=== PATIENT | male | born 1990 | race Asian ===

== ENCOUNTER 2024-12-04 22:43 | Emergency (ER) | payer BC ==
[~2024-12-04] VITALS: Ht 175.3 cm; Wt 87.7 kg
[2024-12-04 22:45] VITALS: O2SAT 98
[2024-12-04 22:46] VITALS: RESP 18
[2024-12-04 23:11] LABS: BASOPHILS % 0.5 % (0.0-2.0); EOSINOPHILS % 2.1 % (0.0-5.0); HEMATOCRIT. 45.4 % (42.0-52.0); HEMOGLOBIN. 15.4 g/dL (14.0-18.0); LYMPHOCYTES % 32.3 % (20.0-50.0); MEAN PLATELET VOLUME 8.1 fl (7.4-10.4); MONOCYTES % 9.0 % (2.0-8.0); NEUTROPHILS % 56.1 % (40.0-76.0); PLATELET 243 x1000/uL (130-400); RED BLOOD CELL COUNT 5.52 mill/uL (4.7-6.1); RED CELL DISTRIBUTION WIDTH 13.3 % (11.6-14.6)
[2024-12-04 23:20] LABS: CREATININE 1.0 mg/dL (0.6-1.3)
[2024-12-04 23:21] LABS: TROPONIN I HIGH SENSITIVITY < 4 ng/L (3.0-53); UREA NITROGEN BLOOD 11 mg/dL (9-23)
[2024-12-05] MEDS: ONDANSETRON 4MG ODT PO ONE (00:45)
[2024-12-05] MEDS: MAGNESIUM/ALUMINUM HYDROXIDE/SIMETHICONE 30ML UDC PO ONE (00:45)
[2024-12-05 01:08] VITALS: BP 140/83; PULSE 92; TEMP 36.2; O2SAT 96
== END 2024-12-05 01:10 | disposition home or self-care (01) ==
LOC: ER 22:43
DX: R00.2 Palpitations (principal); R07.9 Chest pain, unspecified; R11.2 Nausea with vomiting, unspecified
CPT/HCPCS: 99285; 71045; 80048; 85025; 84484; 36415; 93005; Q0162